=== PATIENT | female | born 1990 | race Hispanic/Latino ===

== ENCOUNTER 2023-06-01 21:26 | Inpatient (IN) | payer MEDICAID ==
[~2023-06-01] VITALS: Ht 152.4 cm; Wt 80.3 kg
[2023-06-01 21:51] VITALS: O2SAT 98
[2023-06-01 22:16] LABS: APPEARANCE,URINE CLEAR (CLEAR); BILIRUBIN,URINE NEGATIVE (NEGATIVE); COLOR,URINE LIGHT-YELLOW (YELLOW); GLUCOSE, URINE (UA) NEGATIVE (NEGATIVE); KETONES,URINE NEGATIVE (NEGATIVE); LEUKOCYTE ESTERASE ,URINE NEGATIVE Leu/uL (NEGATIVE); NITRATE,URINE NEGATIVE (NEGATIVE); PH,URINE 5.5 (5.0-8.0); PROTEIN,URINE NEGATIVE (NEGATIVE); UROBILINOGEN,URINE 0.2 mg/dL (0.2-1.0)
[2023-06-01 22:20] LABS: ADD UA MICROSCOPIC YES
[2023-06-01 22:22] LABS: MUCUS,URINE RARE LPF (None Seen); RBC,URINE 0-1 /HPF (0-1); SQUAMOUS EPITHELIAL CELL,UR MOD /HPF (0-2)
[2023-06-01] MEDS ORDERED: LACTATED RINGERS 1000ML IV PRN (22:30)
[2023-06-01 22:51] LABS: HEMATOCRIT 35.3 % (36-48); MEAN CORPUSCULAR HEMOGLOBIN 30.3 pg (27.0-33.0); MEAN CORPUSCULAR HGB CONC 33.7 g/dL (32.0-36.0); MEAN CORPUSCULAR VOLUME 89.8 fL (79-99); RED BLOOD CELL COUNT(AUTO) 3.93 MIL/uL (4.00-5.50); RED CELL DISTRIBUTION WIDTH 12.9 % (11.0-15.5); WHITE BLOOD COUNT (AUTO) 10.5 K/uL (4.8-10.8)
[2023-06-01] MEDS ORDERED: MEPERIDINE-PF 50 MG/ML SYG IVP ONE (23:00)
[2023-06-01] MEDS ORDERED: PROMETHAZINE HCL 25 MG/ML 1ML AMPULE IM ONE (23:00)
[2023-06-01] MEDS ORDERED: OXYTOCIN-LR 30 UNITS/500ML 500 ML IV SCH (23:00)
[2023-06-01] MEDS ORDERED: AMPICILLIN 2GM+NS 100ML 100 ML IV SCH (23:00)
[2023-06-01] MEDS: LACTATED RINGERS 1000ML 1,000 ML IV PRN (23:15)
[2023-06-02] MEDS ORDERED: LIDOCAINE HCL 1% 20 ML VIAL ONE (00:21)
[2023-06-02] MEDS ORDERED: BENZOCAINE/LANOLIN/ALOE VERA 60 ML AEROSOL TP PRN (02:30)
[2023-06-02] MEDS ORDERED: MEASLES/MUMPS/RUBELLA VACCINE, LIVE 0.5 ML/VIAL SQ PRN (02:30)
[2023-06-02] MEDS ORDERED: DIPH,PERTUSS(ACELL),TET VAC/PF 0.5 ML VIAL IM PRN (02:30)
[2023-06-02] MEDS ORDERED: WITCH HAZEL 1 PAD TP PRN (02:30)
[2023-06-02] MEDS ORDERED: OXYTOCIN-LR 30 UNITS/500ML 500 ML IV SCH (02:30)
[2023-06-02] MEDS ORDERED: ACETAMINOPHEN WITH CODEINE 1 TAB TAB PO PRN (02:30)
[2023-06-02] MEDS ORDERED: ACETAMINOPHEN 325 MG TAB PO PRN (02:30)
[2023-06-02] MEDS ORDERED: LANOLIN 30GM OINTMENT TP PRN (02:30)
[2023-06-02] MEDS ORDERED: AMPICILLIN 1GM+NS 50ML 50 ML IV SCH (03:00)
[2023-06-02 03:55] VITALS: BP 108/76; PULSE 94; RESP 20
[2023-06-02] MEDS: IBUPROFEN 600 MG TABLET PO PRN ×2 (06:10→14:06)
[2023-06-02 07:30] VITALS: BP 113/74; PULSE 88; RESP 18
[2023-06-02] MEDS: DOCUSATE SODIUM 100 MG CAP PO SCH ×2 (08:16→21:28)
[2023-06-02] MEDS: LACTATED RINGERS 1000ML 1,000 ML IV PRN ×2 (08:33→08:34)
[2023-06-02 09:04] LABS: RAPID PLASMA REAGIN NONREACTIVE (NONREACTIVE)
[2023-06-02 11:20] VITALS: BP 117/73; PULSE 87; RESP 18
[2023-06-02 16:00] VITALS: BP 120/75; PULSE 84; RESP 18
[2023-06-02 19:37] VITALS: BP 126/90; PULSE 85; RESP 17
[2023-06-02 23:56] VITALS: BP 121/80; PULSE 72; RESP 17
[2023-06-03 03:51] VITALS: BP 107/71; PULSE 63; RESP 16
[2023-06-03 06:22] LABS: HEMATOCRIT 35.9 % (36-48); MEAN CORPUSCULAR HEMOGLOBIN 29.3 pg (27.0-33.0); MEAN CORPUSCULAR HGB CONC 31.8 g/dL (32.0-36.0); MEAN CORPUSCULAR VOLUME 92.3 fL (79-99); RED BLOOD CELL COUNT(AUTO) 3.89 MIL/uL (4.00-5.50); RED CELL DISTRIBUTION WIDTH 13.2 % (11.0-15.5); WHITE BLOOD COUNT (AUTO) 11.1 K/uL (4.8-10.8)
[2023-06-03 07:15] VITALS: BP 95/45; PULSE 75; RESP 18
[2023-06-03] MEDS: DOCUSATE SODIUM 100 MG CAP PO SCH (08:55)
[2023-06-03] MEDS: IBUPROFEN 600 MG TABLET PO PRN (08:55)
[2023-06-03 11:53] VITALS: BP 118/76; PULSE 79; RESP 18
== END 2023-06-03 12:30 | disposition home or self-care (01) | DRG 560 ==
LOC: EDH 21:26 → LDH 21:27 → OBSVTOIN 21:27 → WSH 06-02 03:40
PROVIDERS: ADMIT Obstetrics & Gynecology; ATTEND Obstetrics & Gynecology
PROC: 10E0XZZ Delivery of Products of Conception, External Approach (ICD-10-PCS; principal; 2023-06-02)
PROC: 0KQM0ZZ Repair Perineum Muscle, Open Approach (ICD-10-PCS; 2023-06-02)
DX: O62.3 Precipitate labor (principal); Z37.0 Single live birth; O70.1 Second degree perineal laceration during delivery; Z3A.39 39 weeks gestation of pregnancy
CPT/HCPCS: 36415; 81001; 85027; 86592; 86701; 86850; 86900; 86901; 87340; 87390; 90707; 90715; 92950; G0378; J0290; J2175; J2550; J7120